=== PATIENT | male | born 1995 | race Caucasian/White ===

== ENCOUNTER 2016-10-23 23:40 | Observation (INO) | payer OTHER ==
[2016-10-23] MEDS ORDERED: DEXAMETHASONE 10 MG/ML VIAL IVP ONE (23:51)
[2016-10-23] MEDS ORDERED: CLINDAMYCIN 900 MG/DEXTROSE 50 ML IV ONE (23:52)
[2016-10-23] MEDS ORDERED: ONDANSETRON 4 MG/2 ML VIAL IVP ONE (23:53)
[2016-10-23] MEDS ORDERED: NS 1,000 ML IV ONE (23:53)
[2016-10-24 00:01] LABS: ADD MORPH? NO; ADD SCAN? YES; FRAGMENT RBC FLAG 0 (0-99); LEFT SHIFT FLG 0 (0-99); LIPEMIA HEMOLYSIS FLAG 90 (0-99)
[2016-10-24 00:05] LABS: HEMATOCRIT 43.3 % (40.0-51.0); HEMOGLOBIN 15.1 g/dL (13.7-17.5); MEAN CELL HEMOGLOBIN 30.4 pg (27.9-34.1); MEAN CELL HEMOGLOBIN CONCENTR. 34.9 g/dL (32.4-36.7); MEAN CELL VOLUME 87.1 fL (81.5-99.8); MEAN PLATELET VOLUME 10.4 fL (8.7-11.7); PLATELET CLUMPS FLAG 0 (0-99); PLATELET COUNT 209 10^3/uL (150-400); RED BLOOD CELL COUNT 4.97 10^6/uL (4.40-6.38); RED CELL DISTRIBUTION WIDTH 13.2 % (11.5-15.2)
[2016-10-24 00:06] LABS: ATYPICAL LYMPHOCYTE FLAG 170 (0-99)
[2016-10-24] MEDS ORDERED: IOPAMIDOL (ISOVUE-300) 100 ML BTL ONE (00:06)
[2016-10-24 00:15] LABS: ALANINE AMINOTRANSFERASE 62 IU/L (21-72); ALBUMIN 4.2 g/dL (3.5-5.0); ALKALINE PHOSPHATASE 93 IU/L (38-126); ANION GAP 14 mEq/L (8-16); ASPARTATE AMINOTRANSFERASE 14 IU/L (17-59); BILIRUBIN,TOTAL 0.8 mg/dL (0.1-1.4); C-REACTIVE PROTEIN 73.8 mg/L (<10.0); CALCIUM 9.4 mg/dL (8.5-10.4); CARBON DIOXIDE 25 mEq/l (22-31); CHLORIDE 96 mEq/L (97-110); CREATININE 0.7 mg/dL (0.7-1.3); GLOMERULAR FILTRATION RATE > 60; GLUCOSE 114 mg/dL (70-100); POTASSIUM 4.7 mEq/L (3.5-5.2); SODIUM 135 mEq/L (134-144)
[2016-10-24 00:21] LABS: SEDIMENTATION RATE 27 MM/HR (0-15)
--- NOTE | 2016-10-24 00:24 | EDPHY ---
H & P Stated Complaint: Strep throat, swelling, cough, muffled voice Source: Patient Exam Limitations: No limitations - Personal History Current Tetanus/Diphtheria Vaccine: Unsure Current Tetanus Diphtheria and Acellular Pertussis (TDAP): Unsure Tetanus Vaccine Date: <10 years - Medical/Surgical History Hx Asthma: No Hx Chronic Respiratory Disease: No Hx Diabetes: No Hx Cardiac Disease: No Hx Renal Disease: No Hx Cirrhosis: No Hx Alcoholism: No Hx HIV/AIDS: No Hx Splenectomy or Spleen Trauma: No Other PMH: denies Time Seen by Provider: 10/23/16 23:45 HPI/ROS: CHIEF COMPLAINT: sore throat, muffled voice HISTORY OF PRESENT ILLNESS: 20-year-old male presents emergency department [facility] who reports a sore throat x1 week. Patient had a positive strep test 4 days ago. He has taken 4 days of azithromycin. Patient has been receiving ibuprofen twice daily in the [facility] and 40 mg of prednisone daily for 4 days. Patient reports his symptoms are worsening. Patient has a muffled voice, he denies shortness of breath or chest pain, he reports pain with swallowing he feels like the left side is worse than the right side. Patient is managing his secretions without difficulty, he is not drooling. Patient denies abdominal pain, nausea or vomiting. No diarrhea. REVIEW OF SYSTEMS: A comprehensive 10 point review of systems is otherwise negative aside from elements mentioned in the history of present illness. (Marissa Leon) - Physical Exam Exam: General: Alert, nontoxic. ENT: Tympanic membranes clear, external auditory canal, external ear and surrounding soft tissue including over the mastoid unremarkable. Nasopharynx is not injected, there is no rhinorrhea. Oropharynx with erythema and edema. There is no exudate. Bilateral severe tonsillar hypertrophy. No asymmetry. The uvula is barely visible. No elevation of tongue. Muffled voice No drooling, patient has good control of their oral secretions. No trismus. No stridor. Neck: Anterior cervical lymphadenopathy Cardiac: Tachycardic rate and regular rhythm. Respiratory: Lungs clear to auscultation bilaterally. Neurological: no meningismus. Skin: No rashes. (Marissa Leon) Constitutional: Initial Vital Signs Temperature (C) 36.9 C 10/23/16 23:45 Heart Rate 111 H 10/23/16 23:45 Respiratory Rate 18 10/23/16 23:45 Blood Pressure 127/85 H 10/23/16 23:45 O2 Sat (%) 95 10/23/16 23:45 O2 Delivery Mode Room Air Allergies/Adverse Reactions: amoxicillin Allergy (Verified 10/23/16 23:47) pseudoephedrine Allergy (Verified 10/23/16 23:47) Home Medications: Medication Instructions Recorded Acetaminophen [Tylenol 325mg (*)] 325 mg PO DAILY PRN 10/24/16 Azithromycin 500 mg PO DAILY #4 tablet 10/24/16 Dexamethasone [Decadron 4 MG (*)] 4 mg PO DAILY #8 tab 10/24/16 Medical Decision Making - Diagnostics Imaging: Discussed imaging studies w/ housecalls nurse Radiologist ED Course/Re-evaluation: IV established, CBC, chemistry panel, blood culture, lactic acid, CRP ordered. Patient is given 10 mg of IV Decadron and he is given IV clindamycin. Soft tissue neck CT ordered. Patient is given 1 mg of Dilaudid IV. WBC is mildly elevated at 11.5, chemistry panel is unremarkable, lactic acid is 1.1, CRP is 74. Patient will be admitted to Med surg for observation due to his muffled voice and severe lymphadenopathy. CT results are pending. I have spoken with the hospitalist. Report passed on to Dr. Lew at the end of my shift pending CT results. (Marissa Leon) - Data Points Laboratory Results: Laboratory Results 10/23/16 23:52 10/23/16 23:52 Medications Given: Discontinued Medications Dexamethasone (Decadron Injection) 10 mg IVP EDNOW ONE Stop: 10/23/16 23:52 Last Admin: 10/24/16 00:03 Dose: 10 mg Dexamethasone (Decadron Injection) 10 mg IVP Q8H CHERI Stop: 04/22/17 05:59 Last Admin: 10/24/16 05:04 Dose: 10 mg Dexamethasone (Decadron Injection) 4 mg IVP Q6 CHERI Stop: 04/22/17 11:59 Last Admin: 10/24/16 12:20 Dose: 4 mg Hydromorphone HCl (Dilaudid) 1 mg IVP EDNOW ONE Stop: 10/24/16 00:39 Last Admin: 10/24/16 00:45 Dose: 1 mg Clindamycin Phosphate/Dextrose (Cleocin 900 Mg (Premix)) 50 mls @ 100 mls/hr IV ONCE ONE PRN Reason: Protocol Stop: 10/24/16 00:21 Last Admin: 10/24/16 00:46 Dose: 50 mls Sodium Chloride (Ns) 1,000 mls @ 0 mls/hr IV ONCE ONE PRN Reason: Wide Open Stop: 10/23/16 23:54 Last Admin: 10/24/16 00:03 Dose: 1,000 mls Sodium Chloride (Ns) 1,000 mls @ 0 mls/hr IV ONCE ONE; Wide Open PRN Reason: Protocol Stop: 10/24/16 00:32 Last Admin: 10/24/16 00:44 Dose: 1,000 mls Sodium Chloride (Ns) 1,000 mls @ 100 mls/hr IV CONT CHERI Stop: 04/22/17 01:44 Last Admin: 10/24/16 12:20 Dose: 1,000 mls Clindamycin Phosphate/Dextrose (Cleocin 600 Mg (Premix)) 50 mls @ 100 mls/hr IV Q8HRS CHERI PRN Reason: Protocol Stop: 11/23/16 05:59 Last Admin: 10/24/16 14:35 Dose: 50 mls Ondansetron HCl (Zofran) 4 mg IVP EDNOW ONE Stop: 10/23/16 23:54 Last Admin: 10/24/16 00:03 Dose: 4 mg Departure - Departure Disposition: [facility] Acute Clinical Impression: Acute streptococcal pharyngitis Condition: Fair
[2016-10-24 00:29] LABS: ADD DIFF? YES; SCAN POSITIVE
[2016-10-24] MEDS ORDERED: NS 1,000 ML IV ONE (00:31)
[2016-10-24] MEDS ORDERED: HYDROmorphONE/DILAUDID 1 MG/ML SYR IVP ONE (00:38)
[2016-10-24 00:42] LABS: PLATELET ESTIMATE ADEQUATE (ADEQ); TOXIC GRANULATION PRESENT
[2016-10-24] MEDS ORDERED: ONDANSETRON 4 MG/2 ML VIAL IVP PRN (01:45)
[2016-10-24] MEDS ORDERED: ACETAMINOPHEN 325 MG TAB PO PRN (01:45)
[2016-10-24] MEDS ORDERED: ONDANSETRON DISINTEGRATING 4 MG TAB PO PRN (01:45)
[2016-10-24] MEDS ORDERED: HYDROmorphONE/DILAUDID 1 MG/ML SYR IVP PRN (01:45)
[2016-10-24] MEDS: NS 1,000 ML IV SCH ×2 (02:27→12:20)
--- NOTE | 2016-10-24 03:28 | PDGENHP ---
History and Physical - Chief Complaint throat pain - History of Present Illness Patient is a 20 year old male who presents from [facility] with complaint of throat pain and swelling. Patient reports symptoms started about 5 days ago with initially mild odynophagia/sore throat, especially when swallowing. Rapid strep swab was checked on first day of symptoms and was negative. The following day, patient's symptoms continued to worsen, he reports a fever to 104F and repeat strep swab was again checked and was then positive for Strep. Given his penicillin allergy, he was started on Azithromycin at this time (4 days ago). Despite antibiotic therapy, patient's throat pain and swelling continued to worsen, he is voice began to sound muffled and he continued to have intermittent subjective fever and chills. Given this, he was transported to [facility] for further evaluation. He is able to swallow his secretions , but has been having difficulty eating due to pain. Pain is worse on L side. On arrival to the ED, patient was afebrile and hemodynamically stable. Labs were significant for mild leukocytosis, elevated CRP and ESR. Exam was positive for "kissing tonsils." CT neck was then obtained, revealed diffuse cervical LAD , could not exclude tonsillar abscess vs necrotic LAD. He was initiated on clindamycin and admitted for further management. History Information - Allergies/Home Medication List Allergies/Adverse Reactions: amoxicillin Allergy (Verified 10/23/16 23:47) pseudoephedrine Allergy (Verified 10/23/16 23:47) Home Medications: AZITHROMYCIN 10/24/16 [Last Taken Unknown] Prednisone 10/24/16 [Last Taken Unknown] I have personally reviewed and updated: family history, medical history, social history, surgical history - Past Medical History no pertinent PMH - Surgical History Reports: appendectomy - Family History Positive for: non-pertinent - Social History Smoking Status: Current every day smoker (prior to incarceration, 1/2PPD) Alcohol Use: None 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, methamphetamine) Additional social history: incarcerated in [facility] since 09/2016 Review of Systems ROS: 10pt was reviewed & negative except for what was stated in HPI & below Physical Exam Temp Pulse Resp BP Pulse Ox 36.6 C 81 18 120/73 95 10/24/16 01:49 10/24/16 01:49 10/24/16 01:49 10/24/16 01:36 10/24/16 01:49 O2 (L/minute) 0 Constitutional: no apparent distress, appears nourished, not in pain Eyes: PERRL, anicteric sclera, EOMI Ears, Nose, Mouth, Throat: hearing normal, ears appear normal, no oral mucosal ulcers, other (bilateral severely edematous and erythematous tonsils with purulent exudate; tender anterior cervical lymphadenopathy, L>R; dysphonia) Cardiovascular: regular rate and rhythym, no murmur, rub, or gallop, pulses symmetric bilaterally, No JVD, No edema Peripheral Pulses: 2+: dorsalis-pedis (R), dorsalis-pedis (L) Respiratory: no respiratory distress, no rales or rhonchi, clear to auscultation , other (able to swallow secretions) Gastrointestinal: normoactive bowel sounds, soft, non-tender abdomen, no palpable masses Genitourinary: no bladder fullness, no bladder tenderness Skin: warm, normal color, no rashes or abrasions, no fluctuance, no induration, No mottled Musculoskeletal: full muscle strength, no muscle tenderness, normal joint ROM, no joint effusions Neurologic: AAOx3, sensation intact bilaterally, CN II-XII Intact, No weakness, No numbness, No facial droop Psychiatric: interacting appropriately, not anxious, not encephalopathic, thought process linear Lymph, Heme, Immunologic: lymphadenopathy (anterior cervical, tender) Lab Data & Imaging Review 10/23/16 23:52 10/23/16 23:52 WBC 11.58 10^3/uL (3.80-9.50) H 10/23/16 23:52 RBC 4.97 10^6/uL (4.40-6.38) 10/23/16 23:52 Hgb 15.1 g/dL (13.7-17.5) 10/23/16 23:52 Hct 43.3 % (40.0-51.0) 10/23/16 23:52 MCV 87.1 fL (81.5-99.8) 10/23/16 23:52 MCH 30.4 pg (27.9-34.1) 10/23/16 23:52 MCHC 34.9 g/dL (32.4-36.7) 10/23/16 23:52 RDW 13.2 % (11.5-15.2) 10/23/16 23:52 Plt Count 209 10^3/uL (150-400) D 10/23/16 23:52 MPV 10.4 fL (8.7-11.7) 10/23/16 23:52 Neut % (Auto) Not Reported 10/23/16 23:52 Lymph % (Auto) Not Reported 10/23/16 23:52 Dickson % (Auto) Not Reported 10/23/16 23:52 Eos % (Auto) Not Reported 10/23/16 23:52 Baso % (Auto) Not Reported 10/23/16 23:52 Nucleat RBC Rel Count 0.0 % (0.0-0.2) 10/23/16 23:52 Absolute Neuts (auto) Not Reported 10/23/16 23:52 Absolute Lymphs (auto) Not Reported 10/23/16 23:52 Absolute Monos (auto) Not Reported 10/23/16 23:52 Absolute Eos (auto) Not Reported 10/23/16 23:52 Absolute Basos (auto) Not Reported 10/23/16 23:52 Absolute Nucleated RBC 0.00 10^3/uL (0-0.01) 10/23/16 23:52 Immature Gran % Not Reported 10/23/16 23:52 Seg Neutrophils % 55 % 10/23/16 23:52 Band Neutrophils % 13 % 10/23/16 23:52 Lymphocytes % 18 % 10/23/16 23:52 Monocytes % 14 % 10/23/16 23:52 Immature Gran # Not Reported 10/23/16 23:52 Absolute Seg Neuts 6.37 10^/uL (1.70-6.50) 10/23/16 23:52 Absolute Band Neuts 1.51 10^3/uL (0.00-0.70) H 10/23/16 23:52 Absolute Lymphocytes 2.08 10^3/uL (1.00-3.00) 10/23/16 23:52 Absolute Monocytes 1.62 10^3/uL (0.30-0.80) H 10/23/16 23:52 Atypical Lymphocytes 1+ H 10/23/16 23:52 Toxic Granulation PRESENT H 10/23/16 23:52 Platelet Estimate ADEQUATE (ADEQ) 10/23/16 23:52 ESR 27 MM/HR (0-15) H 10/23/16 23:52 VBG Lactic Acid 1.1 mmol/L (0.7-2.1) 10/23/16 23:52 Sodium 135 mEq/L (134-144) 10/23/16 23:52 Potassium 4.7 mEq/L (3.5-5.2) 10/23/16 23:52 Chloride 96 mEq/L (97-110) L 10/23/16 23:52 Carbon Dioxide 25 mEq/l (22-31) 10/23/16 23:52 Anion Gap 14 mEq/L (8-16) 10/23/16 23:52 BUN 12 mg/dL (7-23) 10/23/16 23:52 Creatinine 0.7 mg/dL (0.7-1.3) 10/23/16 23:52 Estimated GFR > 60 10/23/16 23:52 Glucose 114 mg/dL (70-100) H 10/23/16 23:52 Calcium 9.4 mg/dL (8.5-10.4) 10/23/16 23:52 Total Bilirubin 0.8 mg/dL (0.1-1.4) D 10/23/16 23:52 AST 14 IU/L (17-59) L 10/23/16 23:52 ALT 62 IU/L (21-72) 10/23/16 23:52 Alkaline Phosphatase 93 IU/L (38-126) 10/23/16 23:52 C-Reactive Protein 73.8 mg/L (<10.0) H 10/23/16 23:52 Total Protein 8.0 g/dL (6.3-8.2) 10/23/16 23:52 Albumin 4.2 g/dL (3.5-5.0) 10/23/16 23:52 Visualized and Interpreted imaging results: Yes Interpretation: CT neck: diffuse cervical and mediastinal lymphadenopathy; bilateral tonsillitis, cannot rule out necrotic LN vs tonsillar abscess Assessment & Plan Assessment: Patient is a 20 year old male with no significant pmh who presents to the ED from [facility] with complaint of sore throat x 5 days. ED evaluation reveals acute strep pharyngitis/tonsillitis, with possible complication of abscess. Plan: # acute strep pharyngitis/tonsillitis Moderate to severe tonsillar edema, purulence on exam. CT neck official read still pending, however, prelim read indicates possible necrotizing lymphadenopathy vs abscess. ENT has been consulted and will evaluate patient in AM. Patient currently maintaining airway, managing his secretions. No evidence of sepsis (afebrile, does not meet SIRS criteria). Strep swab was positive in the outpatient setting, will obtain throat culture, f/u blood cultures and continue Clindamycin therapy. Will continue IV fluid hydration, provide IV dexamethasone for management of the edema and pain control as needed. # dispo: Admit to observation status # gen; clear liquid diet DVT ppx: low risk Full code
[2016-10-24 05:04] LABS: INR 1.12 (0.83-1.16); PROTIME(PATIENT) 14.3 SEC (12.0-15.0)
[2016-10-24] MEDS: CLINDAMYCIN 600 MG/DEXTROSE 50 ML IV SCH ×2 (05:04→14:35)
[2016-10-24 05:05] LABS: ADD MORPH? NO; ADD SCAN? YES; APTT 29.8 SEC (23.0-38.0); FRAGMENT RBC FLAG 0 (0-99); HEMATOCRIT 40.8 % (40.0-51.0); HEMOGLOBIN 13.9 g/dL (13.7-17.5); LEFT SHIFT FLG 10 (0-99); LIPEMIA HEMOLYSIS FLAG 90 (0-99); MEAN CELL HEMOGLOBIN 30.3 pg (27.9-34.1); MEAN CELL HEMOGLOBIN CONCENTR. 34.1 g/dL (32.4-36.7); MEAN CELL VOLUME 89.1 fL (81.5-99.8); MEAN PLATELET VOLUME 10.1 fL (8.7-11.7); PLATELET CLUMPS FLAG 0 (0-99); PLATELET COUNT 222 10^3/uL (150-400); RED BLOOD CELL COUNT 4.58 10^6/uL (4.40-6.38); RED CELL DISTRIBUTION WIDTH 13.2 % (11.5-15.2)
[2016-10-24 05:07] LABS: ATYPICAL LYMPHOCYTE FLAG 160 (0-99)
[2016-10-24 05:24] LABS: ADD DIFF? YES; SCAN POSITIVE
[2016-10-24 05:27] LABS: PLATELET ESTIMATE ADEQUATE (ADEQ)
[2016-10-24 05:29] LABS: ANION GAP 9 mEq/L (8-16); CALCIUM 9.3 mg/dL (8.5-10.4); CARBON DIOXIDE 27 mEq/l (22-31); CHLORIDE 103 mEq/L (97-110); CREATININE 0.7 mg/dL (0.7-1.3); GLOMERULAR FILTRATION RATE > 60; GLUCOSE 142 mg/dL (70-100); MAGNESIUM 2.1 mg/dL (1.6-2.3); POTASSIUM 4.9 mEq/L (3.5-5.2); SODIUM 139 mEq/L (134-144)
[2016-10-24] MEDS ORDERED: DEXAMETHASONE 10 MG/ML VIAL IVP SCH (06:00)
[2016-10-24 07:52] VITALS: O2SAT 93
--- NOTE | 2016-10-24 09:03 | GCON ---
[f rep st] CONSULTATION HISTORY OF PRESENT ILLNESS: This is a 20-year-old male who presents from the [facility] with complaints of throat pain and swelling. Patient states his throat pain started approximately 1 week ago. At the nursing home, he had a strep swab that originally came back negative. His symptoms continued to persist, and a repeat swab apparently came back positive. The patient is penicillin allergic and, therefore, started on azithromycin. Presents to the emergency room late on October 23, 2016 due to continuously worsening pain and swelling. Patient notes new onset muffled voice. CT scan was done in the emergency room on arrival, which revealed right and left adenoidal posterior nasopharyngeal and right and left oropharyngeal low-density masses possibly representing peritonsillar abscesses, phlegmon, or necrotic lymphadenopathy. ENT was consulted for evaluation. Patient was started on Decadron 10 mg as well as clindamycin. The patient was admitted to the hospitalist for inpatient IV therapy. On questioning this morning, patient states he is slightly better. He still has pain with swallowing and inability to breathe through his nose. He is unsure if he has ever had mono. He denies any IV drug use. He does admit to smoking tobacco and marijuana as well as street drugs. Patient states he is otherwise healthy. PHYSICAL EXAMINATION: GENERAL: This is a 20-year-old male in no acute distress. He is speaking with a muffled voice. HEENT: Head and face normocephalic, atraumatic. Oropharynx: 3 to 4+ tonsils with significant exudates. Oropharynx is moderately narrowed due to size of tonsils. He has no evidence of peritonsillar abscess on exam. No uvula deviation. NECK: Moderate bilateral tender lymphadenopathy anterior and posterior chains. Laryngoscopic exam was performed through the bilateral nares. Patient was found to have nearly 100% obstructive adenoids. I was able to pass the laryngoscope through the nasopharynx and the larynx to reveal normal base of tongue, epiglottis, and laryngeal airway. Patient's laryngeal airway is widely patent. I did review the CT scans with Dr. Schwartz. No evidence of drainable abscess noted on exam. He does have moderate swelling and severe tonsillitis. ASSESSMENT/PLAN: This is a 20-year-old male with a one-week history of sore throat, trouble swallowing as well as difficulty breathing through his nose. On exam, patient has significant exudative tonsillitis as well as significant adenoid hypertrophy. Patient is unsure if he has ever had mono; however, his presentation is consistent with possible mono-like process. I will order a Monospot to rule this out. 1. Continue clindamycin. 2. Continue Decadron while in house. 3. Once patient able to take p.o., we will recommend discharge back to his facility with continued clindamycin as well as Decadron. 4. Even if Monospot is positive, would still recommend continued clindamycin given positive strep swab. Thanks so much for allowing us to participate in the care of this patient. If there are further questions, please do not hesitate to contact our office. Patient was reviewed with Dr. Schwartz, images were reviewed together. He agrees with the plan above. /[id number]/MODL MTDD
[2016-10-24 11:37] VITALS: BP 123/63; PULSE 95; RESP 16; TEMP 98.3
--- NOTE | 2016-10-24 11:46 | SOAPPROG ---
SOAP Progress Note Assessment/Plan: Addendum to note from this AM. Monospot positive. I discussed results with patient. Discussed symptomatic care. Still recommend clindamycin as he had positive strep culture. Discussed care with steroids. From ENT perspective, once patient can take adequate PO to ensure he continues PO medications, he can be discharged back to his facility. - Continue clindamycin - Recommend once patient is discharged to send prescription for 6 day decadron taper (decadron 8mg x 3 days then 4mg x 3 days) - Patient should follow-up with our office by calling [phone] on discharge in order to schedule f/u next week 10/24/16 11:42 Objective: Vital Signs Temp Pulse Resp BP Pulse Ox 36.8 C 95 16 123/63 H 93 10/24/16 11:36 10/24/16 11:36 10/24/16 11:36 10/24/16 11:36 10/24/16 11:36 Microbiology 10/24/16 09:06 Gram Stain - Final Throat - Swab Laboratory Results 10/24/16 04:28 10/24/16 04:28 10/23/16 10/24/16 10/25/16 05:59 05:59 05:59 Intake Total 2000 Output Total 600 500 Balance 1400 -500 PT 14.3 SEC (12.0-15.0) 10/24/16 04:28 INR 1.12 (0.83-1.16) 10/24/16 04:28 ICD10 Worksheet Patient Problems: Problems Problem Status Onset Acute streptococcal pharyngitis Acute
[2016-10-24] MEDS ORDERED: DEXAMETHASONE 4 MG/ML VIAL IVP SCH (12:00)
--- NOTE | 2016-10-24 22:54 | GDS ---
[f rep st] DISCHARGE SUMMARY DISCHARGE DIAGNOSIS: Pharyngitis, most likely due to mononucleosis, possibly with streptococcus sup erimposition. HISTORY: This is a 20-year-old male who presented from skilled nursing with pharyngitis, possible abscess. HOSPITAL COURSE: Patient had a CT scan of his neck, which showed no abscess. ENT did consult. The y did recommend treating with antibiotics, as well as steroids. His Monospot did come back positive . He has been improving, and is able to eat. We will discharge him back to skilled nursing with steroids to c omplete a course of antibiotics. He is penicillin allergic. We will use higher dose Azithromycin. /[id number]/MODL
== END 2016-10-24 15:59 ==
LOC: F3N 10-24 01:47
PROVIDERS: ADMIT Internal Medicine; ATTEND Internal Medicine
DX: J02.9 Acute pharyngitis, unspecified (principal); B27.90 Infectious mononucleosis, unspecified without complication; J35.3 Hypertrophy of tonsils with hypertrophy of adenoids; R59.0 Localized enlarged lymph nodes; F17.210 Nicotine dependence, cigarettes, uncomplicated; Z88.0 Allergy status to penicillin
CPT/HCPCS: 70491; G0378; 96365; J1100; J1170; J2405; Q9967